=== PATIENT | male | born 1955 | race Caucasian/White ===

== ENCOUNTER → 2022-01-15 19:03 | Outpatient (CLI) | payer OTHER, SELFPAY ==
--- NOTE | 2022-01-15 | DI.RAD_ITS ---
Exam(s) XR KNEE LT 3V AP,LAT,NIKOS EXAM: XR KNEE LT 3V AP,LAT,NIKOS CLINICAL HISTORY: LEFT KNEE PAIN M25.562, ? FX OR POS OF LIGAMENTOUS INJURY TECHNIQUE: COMPARISON: No exams were available for comparison FINDINGS: Three views were obtained. There does not appear to be a significant knee joint effusion. No bony a bnormality seen. IMPRESSION: Negative examination of the knee. RADIATION DOSE DELIVERED: Total DLP
== END ==
PROVIDERS: PCP General Practice; Visit Provider Physician Assistant Medical
DX: M25.562 Pain in left knee (principal)
CPT/HCPCS: 73562

== ENCOUNTER 2025-05-12 11:38 | Outpatient (CLI) | payer MEDICARE, OTHER, SELFPAY ==
--- NOTE | 2025-05-12 09:30 | DI.RAD_ITS ---
Exam(s) XR HAND RT COMPLETE EXAM: XR HAND RT COMPLETE CLINICAL HISTORY: right metacarpal fracture. TECHNIQUE: 2D digital imaging was performed. Three views. COMPARISON: CR XR HAND 3 VIEW RIGHT from 05/07/2025 FINDINGS: BONES: Stable alignment of the fracture of the 2nd metacarpal.. No bony destructive lesion is seen. JOINTS: No dislocation present. SOFT TISSUE: Normal. IMPRESSION: Stable alignment of 2nd metacarpal fracture. DATA REPOSITORY: RADIATION DOSE DELIVERED:
== END 2025-05-12 11:39 | disposition home or self-care (01) ==
LOC: DIORS 11:38
PROVIDERS: PCP General Practice; Referring Provider General Practice; Visit Provider Physician Assistant
DX: S62.609A Fracture of unspecified phalanx of unspecified finger, initial encounter for closed fracture (principal); S62.300A Unspecified fracture of second metacarpal bone, right hand, initial encounter for closed fracture; W22.09XA Striking against other stationary object, initial encounter; Y93.H9 Activity, other involving exterior property and land maintenance, building and construction
CPT/HCPCS: 99203; 73130